=== PATIENT | female | born 1965 | race Caucasian/White ===

== ENCOUNTER 2021-12-15 11:11 | Emergency (ER) | payer OTHER ==
[~2021-12-15] VITALS: Ht 170.2 cm; Wt 131.5 kg
== END 2021-12-15 14:45 | disposition home or self-care (01) ==
LOC: ER 11:11
DX: S52.572A Other intraarticular fracture of lower end of left radius, initial encounter for closed fracture (principal); S52.612A Displaced fracture of left ulna styloid process, initial encounter for closed fracture; S92.511A Displaced fracture of proximal phalanx of right lesser toe(s), initial encounter for closed fracture; S90.121A Contusion of right lesser toe(s) without damage to nail, initial encounter; S83.91XA Sprain of unspecified site of right knee, initial encounter; W01.0XXA Fall on same level from slipping, tripping and stumbling without subsequent striking against object, initial encounter
CPT/HCPCS: 73110; 73562-RT; 73630

== ENCOUNTER 2021-12-29 08:11 | Day surgery (SDC) | payer OTHER ==
[~2021-12-29] VITALS: Ht 170.2 cm; Wt 134.6 kg
--- NOTE | 2021-12-29 10:38 | NUR ---
12/29/21 1038 JIM KUMAR 20MLS OF BUPIVACAINE 0.5% POURED ONTO STERILE FIELD FOR USE DURING CASE.
--- NOTE | 2021-12-29 13:27 | NUR ---
12/29/21 9771 RADHA BENAVIDEZ PT STATES PAIN COMING DOWN, NOW 08/27. WILL GIVE PO PAIN MEDICATION- OXYCODONE 5MG ORDERED WELL FENTNAYL 50MCG TO TOTAL 150MCG
== END 2021-12-29 14:07 | disposition home or self-care (01) ==
LOC: ORSCSDS 08:11
PROVIDERS: Orthopaedic Surgery
PROC: 0PSJ04Z Reposition Left Radius with Internal Fixation Device, Open Approach (ICD-10-PCS; principal; 2021-12-29 10:00)
DX: S52.572A Other intraarticular fracture of lower end of left radius, initial encounter for closed fracture (principal); E66.01 Morbid (severe) obesity due to excess calories; Z68.42 Body mass index [BMI] 45.0-49.9, adult
CPT/HCPCS: A9270; C1713; J0690; J1100; J1885; J2250; J2405; J2704; J3010; J7120